=== PATIENT | female | born 1980 | race Caucasian/White ===

== ENCOUNTER → 2021-10-13 13:22 | Outpatient (BNVA) | payer MEDICAID, SELFPAY | PROVIDERS: Visit Provider Registered Nurse | DX: N18.4 Chronic kidney disease, stage 4 (severe) (principal) | CPT/HCPCS: 80048; 81000; 82043; 82306; 82310; 83970; 85025 ==

== ENCOUNTER → 2021-10-22 10:05 | Outpatient (BNVA) | payer MEDICAID, SELFPAY | PROVIDERS: Visit Provider Registered Nurse | DX: R80.9 Proteinuria, unspecified (principal) | CPT/HCPCS: 80074; 83516; 83883; 86160; 86162; 86235; 86255; 86376 ==

== ENCOUNTER 2021-11-17 13:25 | Outpatient (CLI) | payer MEDICAID, SELFPAY ==
--- NOTE | 2021-11-17 13:34 | US_ITS ---
WS: [id number] ULTRASOUND RENAL TECHNIQUE: Ultrasound examination of both kidneys. CLINICAL INFORMATION: CHRONIC KIDNEY DZ-STAGE 4 COMPARISON: None. FINDINGS: Technically difficult examination due to body habitus RIGHT: Right kidney is slightly smaller compared to the LEFT. Echogenicity: Normal. Cortical thickness: 0.9 cm; Normal. Hydronephrosis: None. Perinephric fluid: None. Right kidney measures: 9.0 cm x 3.7 cm x 4.3 cm. LEFT: Left kidney is normal in size and appearance. Echogenicity: Normal. Cortical thickness: 1.5 cm; Normal. Hydronephrosis: None. Perinephric fluid: None. Left kidney measures: 10.7 cm x 3.1 cm x 3.8 cm. Normal visualized aorta. US/US renal BI* [id number] IMPRESSION: 1. No hydronephrosis in either kidney. 2. RIGHT kidney borders are difficult to visualize. RIGHT kidney is slightly s maller compared to the LEFT. No visualized RIGHT renal mass or lesion. 3. Normal LEFT kidney. 4. Normal bladder.
== END 2021-11-17 13:26 | disposition home or self-care (01) ==
LOC: RAD 13:27
PROVIDERS: PCP Nurse Practitioner Family; Visit Provider Registered Nurse
DX: N18.4 Chronic kidney disease, stage 4 (severe) (principal)
CPT/HCPCS: 76770; 80048; 81000; 82043; 82306; 82310; 83970; 85025

== ENCOUNTER → 2021-11-24 09:50 | Outpatient (BNVA) | payer MEDICAID, SELFPAY | PROVIDERS: PCP Nurse Practitioner Family; Visit Provider Nurse Practitioner Family | DX: N18.30 Chronic kidney disease, stage 3 unspecified (principal); R73.9 Hyperglycemia, unspecified | CPT/HCPCS: 80053; 80061; 83036; 84443; 85025 ==

== ENCOUNTER → 2021-11-27 09:09 | Outpatient (BNVA) | payer MEDICAID, SELFPAY | PROVIDERS: PCP Nurse Practitioner Family; Visit Provider Otolaryngology | DX: H65.01 Acute serous otitis media, right ear (principal); H69.81 Other specified disorders of Eustachian tube, right ear; H90.11 Conductive hearing loss, unilateral, right ear, with unrestricted hearing on the contralateral side; H93.11 Tinnitus, right ear; F17.210 Nicotine dependence, cigarettes, uncomplicated | CPT/HCPCS: 99213 ==

== ENCOUNTER → 2021-12-08 15:19 | Outpatient (BNVA) | payer MEDICAID, SELFPAY | PROVIDERS: PCP Nurse Practitioner Family; Visit Provider Nurse Practitioner Family | DX: R79.89 Other specified abnormal findings of blood chemistry (principal); E89.0 Postprocedural hypothyroidism; E34.9 Endocrine disorder, unspecified; E78.5 Hyperlipidemia, unspecified | CPT/HCPCS: 84439; 84481 ==